=== PATIENT | male | born 1960 | race Caucasian/White ===

== ENCOUNTER 2019-10-06 10:13 | Emergency (ER) | payer SELFPAY ==
[~2019-10-06] VITALS: Ht 177.8 cm; Wt 85.0 kg
[~2019-10-06 10:13] MED LIST: OMEP20TA63 PO
[2019-10-06] MEDS ORDERED: IV NORMAL SALINE 1,000ML 1,000 ML IV SCH (10:32)
[2019-10-06] MEDS ORDERED: IOHEXOL 300 MG/ML 75 ML VIAL. IV ONE (10:45)
[2019-10-06 10:49] LABS: BASO # 0.2 x10^3/uL (0.0-0.2); BASO % 2 % (0-3); EOS % 0 % (0-3); HEMATOCRIT 42.7 % (39.0-53.0); HEMOGLOBIN 14.9 g/dL (13.0-17.5); LYMPH # 0.5 x10^3/uL (1.0-4.8); LYMPH % 3 % (24-48); MEAN CORPUSCULAR HEMOGLOBIN 31 pg (25-35); MEAN CORPUSCULAR HGB CONC 35 g/dL (31-37); MEAN CORPUSCULAR VOLUME 90 fL (79-100); MONO # 0.4 x10^3/uL (0.0-1.1); MONO % 3 % (0-9); NEUT # 13.8 x10^3uL (1.8-7.7); NEUT % 93 % (31-73); PLATELET COUNT 280 x10^3/uL (140-400); RED BLOOD COUNT 4.75 x10^6/uL (4.30-5.70); RED CELL DISTRIBUTION WIDTH 14.7 % (11.5-14.5); WHITE BLOOD COUNT 14.9 x10^3/uL (4.0-11.0)
[2019-10-06 10:56] LABS: CALCIUM 10.4 mg/dL (8.5-10.1); GFR 34.1; POTASSIUM 4.2 mmol/L (3.5-5.1)
[2019-10-06 11:02] LABS: ALBUMIN 4.3 g/dL (3.4-5.0); ALBUMIN/GLOBULIN RATIO 1.2 (1.0-1.7); TOTAL BILIRUBIN 0.4 mg/dL (0.2-1.0); TOTAL PROTEIN 7.9 g/dL (6.4-8.2)
--- NOTE | 2019-10-06 11:46 | RAD ---
Examination: CT ABDOMEN PELVIS WO CONTRAST History: Abdominal pain in Comparison/Correlation: 02/18/2014 CT abdomen and pelvis with oral and IV contrast Findings: Axial images of the abdomen and pelvis were obtained without contrast. Sagittal and coronal reformatted images were provided. Bibasilar linear atelectasis is present. Liver, spleen, pancreas, and adrenal glands are normal. Gallbladder fossa is unremarkable. Moderate left renal atrophy. Right kidney is unremarkable. Stomach is distended with fluid. Radiopaque density which appears to represent a medication pill is noted within the gastric pyloric region. Debris is of somewhat high density is noted within the dependent aspect of the stomach. Small bowel is distended with transition in the right lower quadrant. Appendix is normal. Minimal diverticulosis is present. Radiopaque density within the cecum is present and also appears to represent an undigested medication pill. Appendix is not definitely delineated. No inflammatory change about the cecum. Circumferential wall thickening of the urinary bladder is present. Moderate disc space narrowing at L4-5 is present. Concentric disc bulge at L5-S1 noted. Left inguinal hernia containing identified. Mild prostatomegaly. Impression: Small bowel obstruction with transition within the right lower quadrant. Distal decompressed small bowel bowel. Minimal diverticulosis. PQRS Compliance Statement: One or more of the following individualized dose reduction techniques were utilized for this examination: 1. Automated exposure control 2. Adjustment of the mA and/or kV according to patient size 3. Use of iterative reconstruction technique Electronically signed by: Bismark Judge MD (10/06/2019 11:43 AM) [facility]
--- NOTE | 2019-10-06 11:56 | PHYS DOC ---
Past History Past Medical History: GERD, Hypertension Past Surgical History: Other Additional Past Surgical Histo: Herina, left eye Alcohol Use: None Drug Use: None Adult General Chief Complaint Chief Complaint: ABDOMINAL PAIN HPI HPI Patient is a 59-year-old male who presents with complaint of generalized ab dominal pain/cramping that started last night. Patient states that he's been feeling a lot of bloating in his abdomen and is much more distended than usual. Patient states that at its worst pain was about a 7 out of 10 but currently is only about a 3 out of 10. He does indicate that he was nauseated last night but has no nausea currently. He denies any chest pain or shortness of breath. He denies any fever.[] Review of Systems Review of Systems Constitutional: Denies fever or chills [] Respiratory: Denies cough or shortness of breath [] Cardiovascular: No additional information not addressed in HPI [] GI: Complains of abdominal pain with nausea. Denies vomiting or diarrhea [] Integument: Denies rash or skin lesions [] Neurologic: Denies headache, focal weakness or sensory changes [] All other systems were reviewed and found to be within normal limits, except as documented in this note. Current Medications Current Medications Current Medications Medications (Trade) Dose Ordered Sig/Mouna Start Time Stop Time Status Last Admin Dose Admin Iohexol (Omnipaque 300 Mg/ml) 75 ml 1X ONCE 10/06/19 10:45 10/06/19 10:46 DC Sodium Chloride 1,000 ml @ 1,000 mls/hr Q1H 10/06/19 10:32 10/06/19 11:31 DC 10/06/19 10:32 1,000 MLS/HR Allergies Allergies Allergies Coded Allergies Type Severity Reaction Last Updated Verified No Known Drug Allergies 02/18/14 No Physical Exam Physical Exam Constitutional: Well developed, well nourished, no acute distress, non-toxic appearance. [] HENT: Normocephalic, atraumatic, bilateral external ears normal, oropharynx moist, no oral exudates, nose normal. [] Eyes: PERRLA, EOMI, conjunctiva normal, no discharge. [] Neck: Normal range of motion, no tenderness, supple. [] Cardiovascular: Regular rate and rhythm[] Lungs & Thorax: Bilateral breath sounds clear to auscultation [] Abdomen: Bowel sounds normal, soft, with left sided mid abdominal tenderness. [] Skin: Warm, dry, no erythema, no rash. [] Extremities: No tenderness, no cyanosis, no clubbing, ROM intact. [] Neurologic: Alert and oriented X 3, no focal deficits noted. [] Current Patient Data Vital Signs Vital Signs Date Time Temp Pulse Resp B/P (MAP) Pulse Ox O2 Delivery O2 Flow Rate FiO2 10/06/19 10:27 98.2 110 16 98 Room Air Lab Results Laboratory Tests Test 10/06/19 10:38 White Blood Count 14.9 x10^3/uL (4.0-11.0) H Red Blood Count 4.75 x10^6/uL (4.30-5.70) Hemoglobin 14.9 g/dL (13.0-17.5) Hematocrit 42.7 % (39.0-53.0) Mean Corpuscular Volume 90 fL (79-100) Mean Corpuscular Hemoglobin 31 pg (25-35) Mean Corpuscular Hemoglobin Concent 35 g/dL (31-37) Red Cell Distribution Width 14.7 % (11.5-14.5) H Platelet Count 280 x10^3/uL (140-400) Neutrophils (%) (Auto) 93 % (31-73) H Lymphocytes (%) (Auto) 3 % (24-48) L Monocytes (%) (Auto) 3 % (0-9) Eosinophils (%) (Auto) 0 % (0-3) Basophils (%) (Auto) 2 % (0-3) Neutrophils # (Auto) 13.8 x10^3uL (1.8-7.7) H Lymphocytes # (Auto) 0.5 x10^3/uL (1.0-4.8) L Monocytes # (Auto) 0.4 x10^3/uL (0.0-1.1) Eosinophils # (Auto) 0.0 x10^3/uL (0.0-0.7) Basophils # (Auto) 0.2 x10^3/uL (0.0-0.2) Sodium Level 139 mmol/L (136-145) Potassium Level 4.2 mmol/L (3.5-5.1) Chloride Level 97 mmol/L (98-107) L Carbon Dioxide Level 33 mmol/L (21-32) H Anion Gap 9 (6-14) Blood Urea Nitrogen 29 mg/dL (8-26) H Creatinine 2.0 mg/dL (0.7-1.3) H Estimated GFR (Cockcroft-Gault) 34.1 BUN/Creatinine Ratio 15 (6-20) Glucose Level 164 mg/dL (70-99) H Calcium Level 10.4 mg/dL (8.5-10.1) H Total Bilirubin 0.4 mg/dL (0.2-1.0) Aspartate Amino Transferase (AST) 16 U/L (15-37) Alanine Aminotransferase (ALT) 37 U/L (16-63) Alkaline Phosphatase 76 U/L (46-116) Total Protein 7.9 g/dL (6.4-8.2) Albumin 4.3 g/dL (3.4-5.0) Albumin/Globulin Ratio 1.2 (1.0-1.7) Lipase 74 U/L (73-393) EKG EKG [] Radiology/Procedures Radiology/Procedures [] Impressions: Examination: CT ABDOMEN PELVIS WO CONTRAST History: Abdominal pain in Comparison/Correlation: 02/18/2014 CT abdomen and pelvis with oral and IV contrast Findings: Axial images of the abdomen and pelvis were obtained without contrast. Sagittal and coronal reformatted images were provided. Bibasilar linear atelectasis is present. Liver, spleen, pancreas, and adrenal glands are normal. Gallbladder fossa is unremarkable. Moderate left renal atrophy. Right kidney is unremarkable. Stomach is distended with fluid. Radiopaque density which appears to represent a medication pill is noted within the gastric pyloric region. Debris is of somewhat high density is noted within the dependent aspect of the stomach. Small bowel is distended with transition in the right lower quadrant. Appendix is normal. Minimal diverticulosis is present. Radiopaque density within the cecum is present and also appears to represent an undigested medication pill. Appendix is not definitely delineated. No inflammatory change about the cecum. Circumferential wall thickening of the urinary bladder is present. Moderate disc space narrowing at L4-5 is present. Concentric disc bulge at L5-S1 noted. Left inguinal hernia containing identified. Mild prostatomegaly. Impression: Small bowel obstruction with transition within the right lower quadrant. Distal decompressed small bowel bowel. Minimal diverticulosis. PQRS Compliance Statement: One or more of the following individualized dose reduction techniques were utilized for this examination: 1. Automated exposure control 2. Adjustment of the mA and/or kV according to patient size 3. Use of iterative reconstruction technique Electronically signed by: Bismark Judge MD (10/06/2019 11:43 AM) [facility] Course & Med Decision Making Course & Med Decision Making Pertinent Labs and Imaging studies reviewed. (See chart for details) [] Dragon Disclaimer Dragon Disclaimer This electronic medical record was generated, in whole or in part, using a voice recognition dictation system. Departure Departure: Impression: Primary Impression: SBO (small bowel obstruction) [facility] Admitting Physician: Chetna Collins Condition: IMPROVED Referrals: HECTOR SHEN (PCP) BECKI WEBB Jr. DO Oct 06, 2019 11:56
[2019-10-06 12:08] LABS: BILIRUBIN,URINE NEG (NEG); CLARITY,URINE TURBID; COLOR,URINE YELLOW; GLUCOSE,URINE NEG (NEG); NITRITE,URINE NEG (NEG); UROBILINOGEN,URINE 0.2 mg/dL (0.2 mg/dL)
[2019-10-06 12:09] LABS: AMORPHOUS SEDIMENT,UR PRESENT /HPF; BACTERIA,URINE 0 /HPF (0-FEW); WBC,URINE OCC /HPF (0-4)
[2019-10-06 12:55] VITALS: BP 140/90
[2019-10-06] MEDS ORDERED: MORPHINE SULFATE 4 MG/ML DISP.SYRIN. IV ONE (13:15)
[2019-10-06] MEDS ORDERED: ONDANSETRON PF 4 MG/2 ML VIAL. IVP ONE (13:15)
== END 2019-10-06 14:30 | disposition short-term general hospital (02) ==
LOC: ER 10:13
DX: K56.609 Unspecified intestinal obstruction, unspecified as to partial versus complete obstruction (principal); K21.9 Gastro-esophageal reflux disease without esophagitis; I10 Essential (primary) hypertension
CPT/HCPCS: 36415; 74176; 80053; 81001; 83605; 83690; 85025; 96374; 96375; 99285; J2270; J2405; J7030